=== PATIENT | female | born 1950 | race Caucasian/White ===

== ENCOUNTER 2018-09-20 18:41 | Emergency (ER) | payer MEDICAID ==
[2018-09-20] MEDS ORDERED: Morphine 2 MG/ML Syringe IVPUSH ONE (19:28)
[2018-09-20 19:29] LABS: CHLORIDE,CL 97 mmol/L (98-107); SODIUM,NA 131 mmol/L (136-145)
[2018-09-20] MEDS ORDERED: Ondansetron 4 MG/2 ML SDV IVPUSH ONE (19:29)
[2018-09-20] MEDS: Sodium Chloride 0.9% 10 ML Syringe FLUSH PRN ×2 (19:35→20:02)
--- NOTE | 2018-09-20 19:43 | EDM.PDOC ---
ED HPI GENERAL MEDICAL PROBLEM - General Chief Complaint: Chest Pain Stated Complaint: chest pain, dizziness Time Seen by Provider: 09/20/18 19:06 Source of Information: Reports: Patient History Limitations: Reports: Other (history of dementia, lives on basic care side of [facility]) - History of Present Illness INITIAL COMMENTS - FREE TEXT/NARRATIVE: Patient comes to ER complaining of two days of left sided chest pain/shoulder pain. Worse with inspiration and lifting left arm over head. Denies injury. Mild light headedness at times, no vertigo. Denies other changes, including headache/other pain, fevers/chills. No sore throat/cold symptoms. No cough/wheezing/SOB. Denies nausea/emesis/bowel changes. No dysuria/hematuria/UTI complaints. No new focal weakness in limbs, including left arm. Denies numbness/tingling of left arm. Pain does not travel down arm. Patient does have history of dementia listed on problem list from [facility]. No staff members present during evaluation. Appeared to be appropriately answering questions. Oriented appropriately - Related Data Allergies Allergy/AdvReac Type Severity Reaction Status Date / Time bee venom protein (honey bee) Allergy Hives Verified 09/20/18 19:16 lisinopril Allergy Cough Verified 09/20/18 19:14 Penicillins Allergy Cannot Verified 09/20/18 19:16 Remember "anesthesia" Allergy Shortness Uncoded 09/20/18 19:16 of Breath Home Meds: Home Meds Acetaminophen [Tylenol Extra Strength] 1,000 mg PO Q8H PRN 09/20/18 [History] Acetaminophen [Tylenol] 325 mg PO Q6H PRN #12 tablet 09/20/18 [Rx] Acetaminophen with Codeine [Tylenol with Codeine #3 Tablet] 1 each PO Q6H #12 tablet 09/20/18 [Rx] Albuterol/Ipratropium [DuoNeb 3.0-0.5 MG/3 ML] 3 ml .XX QID #1 box 09/20/18 [Rx] Aspirin [Halfprin] 81 mg PO DAILY 09/20/18 [History] Cholecalciferol (Vitamin D3) [Vitamin D3] 1,000 units PO DAILY 09/20/18 [History ] Divalproex Sodium [Depakote ER] 500 mg PO BID 09/20/18 [History] Doxycycline [Vibramycin] 100 mg PO BID #14 cap 09/20/18 [Rx] Loratadine [Claritin] 5 mg PO DAILY@18 09/20/18 [History] Multivitamin [Multi-Vitamin Daily] 1 each PO DAILY 09/20/18 [History] Phenylephrine HCl [Sudogest PE] 10 mg PO Q4H PRN 09/20/18 [History] QUEtiapine [SEROquel] 100 mg PO BID 09/20/18 [History] Sertraline [Zoloft] 125 mg PO DAILY 09/20/18 [History] Sodium Chloride 1 gm PO BID 09/20/18 [History] Spironolactone [Aldactone] 12.5 mg PO DAILY 09/20/18 [History] amLODIPine Besylate [Amlodipine Besylate] 5 mg PO DAILY 09/20/18 [History] atorvaSTATin Calcium [Lipitor] 20 mg PO DAILY@18 09/20/18 [History] Past Medical History HEENT History: Reports: Allergic Rhinitis Cardiovascular History: Reports: High Cholesterol, Hypertension Musculoskeletal History: Reports: Osteoarthritis, Other (See Below) (chronic pain) Neurological History: Reports: Seizure Psychiatric History: Reports: Alzheimers Disease, Anxiety, Dementia, Depression , PTSD, Other (See Below) (insomnia, history of self-harm) Hematologic History: Reports: Other (See Below) (chronically low Na/Cl, Vitamin D deficiency) Social & Family History - Family History Family Medical History: Noncontributory - Tobacco Use Smoking Status *Q: Never Smoker - Caffeine Use Caffeine Use: Reports: Coffee - Alcohol Use Alcohol Use History: No - Recreational Drug Use Recreational Drug Use: No Drug Use in Last 12 Months: No ED ROS GENERAL - Review of Systems Review Of Systems: ROS reveals no pertinent complaints other than HPI. ED EXAM, GENERAL - Physical Exam Exam: See Below Exam Limited By: No Limitations General Appearance: Alert, WD/WN, No Apparent Distress Eye Exam: Bilateral Eye: EOMI, PERRL Ears: Normal External Exam Nose: No: Nasal Deformity, Nasal Swelling, Nasal Drainage Throat/Mouth: Normal Lips, Normal Voice, No Airway Compromise Head: Atraumatic, Normocephalic Neck: Normal Inspection, Supple, Non-Tender, Full Range of Motion. No: Carotid Bruit, Lymphadenopathy (L), Lymphadenopathy (R) Respiratory/Chest: No Respiratory Distress, Lungs Clear, Normal Breath Sounds, No Accessory Muscle Use, Other (tender with palpation over lateral left ribcage , reproduces patient's pain complaint. ) Cardiovascular: Normal Peripheral Pulses, Regular Rate, Rhythm, No Edema, No Murmur Peripheral Pulses: 2+: Radial (L), Radial (R) GI/Abdominal: Normal Bowel Sounds, Soft, Non-Tender, No Distention, No Abnormal Bruit (Female) Exam: Deferred Rectal (Female) Exam: Deferred Back Exam: Normal Inspection. No: CVA Tenderness (L), CVA Tenderness (R), Muscle Spasm, Paraspinal Tenderness, Vertebral Tenderness Extremities: Normal Inspection, Non-Tender, Normal Capillary Refill Neurological: Alert, Oriented, Normal Gait, No Motor/Sensory Deficits Psychiatric: Normal Affect, Normal Mood Skin Exam: Warm, Dry, Intact, Normal Color EKG INTERPRETATION EKG Date: 09/20/18 Time: 18:44 Rhythm: Other (sinus tach) Rate (Beats/Min): 108 [place]: RAD-Right [place] Deviation P-Wave: Present QRS: Normal ST-T: Other (no changes suggestive of acute ischemia noted.) QT: Normal Comparison: NA - No Prior EKG Course - Orders/Labs/Meds Orders: Active Orders 24 hr Category Date Time Status EKG Documentation Completion [RC] ASDIRECTED Care 09/20/18 19:02 Active Oxygen Therapy, ED [RC] ASDIRECTED Care 09/20/18 19:12 Active Chest 2V [CR] Stat Exams 09/20/18 19:01 Taken Azithromycin [Zithromax] 500 mg Med 09/20/18 19:45 Active Sodium Chloride 0.9% [Normal Saline] 250 ml IV ONETIME Sodium Chloride 0.9% [Saline Flush] Med 09/20/18 19:12 Active 10 ml FLUSH ASDIRECTED PRN Saline Lock Insert [OM.PC] Routine Oth 09/20/18 19:12 Ordered EKG 12 Lead [EK] Routine Ther 09/20/18 18:50 Ordered Medication Orders Azithromycin 500 mg/ Sodium (Chloride) 250 mls @ 250 mls/hr IV ONETIME ONE Stop: 09/20/18 20:44 Last Admin: 09/20/18 20:04 Dose: 250 mls/hr Sodium Chloride (Saline Flush) 10 ml FLUSH ASDIRECTED PRN PRN Reason: Keep Vein Open Last Admin: 09/20/18 20:02 Dose: 10 ml Admin: 09/20/18 19:35 Dose: 10 ml Labs: Laboratory Tests 09/20/18 09/20/18 09/20/18 Range/Units 19:02 19:02 19:02 WBC 7.0 (4.0-10.2) K/uL RBC 4.32 (3.77-5.09) M/uL Hgb 13.0 (11.7-15.5) g/dL Hct 37.5 (34.0-46.0) % MCV 86.8 (84.0-98.0) fL MCH 30.1 (28.2-33.3) pg MCHC 34.7 (31.7-36.0) g/dL RDW 14.2 H (11.2-14.1) % Plt Count 180 (150-350) K/uL Neut % (Auto) 66.7 (45.0-80.0) % Lymph % (Auto) 17.8 (10.0-50.0) % [place] % (Auto) 13.4 (2.0-14.0) % Eos % (Auto) 2.0 (0.0-5.0) % Baso % (Auto) 0.1 (0.0-2.0) % Neut # (Auto) 4.63 (1.40-7.00) K/uL Lymph # (Auto) 1.24 (0.50-3.50) K/uL [place] # (Auto) 0.93 (0.00-1.00) K/uL Eos # (Auto) 0.14 (0.00-0.50) K/uL Baso # (Auto) 0.01 (0.00-0.20) K/uL PT 10.6 (9.5-12.0) SEC INR 1.0 APTT 29.2 (21.0-31.3) SEC D-Dimer, Quantitative (0-400) ng/mL Sodium 131 L (136-145) mmol/L Potassium 4.4 (3.5-5.1) mmol/L Chloride 97 L (98-107) mmol/L Carbon Dioxide 23.0 (21.0-32.0) mmol/L BUN 20 H (7-18) mg/dL Creatinine 0.81 (0.51-1.17) mg/dL Est Cr Clr Drug Dosing TNP Estimated GFR (MDRD) > 60 mL/min Glucose 130 H (74-106) mg/dL Lactic Acid (0.4-2.0) mmol/L Calcium 8.8 (8.5-10.1) mg/dL Magnesium 1.8 (1.8-2.4) mg/dL Total Bilirubin 0.3 (0.2-1.0) mg/dL AST 17 (15-37) U/L ALT 25 (12-78) U/L Alkaline Phosphatase 92 (46-116) IU/L Creatine Kinase 64 (26-308) U/L Creatine Kinase Index 1.6 (0.0-2.5) % CK-MB (CK-2) 1.00 (0.00-3.60) ng/mL Troponin I 0.004 (0.000-0.056) ng/mL NT-Pro-B Natriuret Pep 63 (0-125) pg/mL Total Protein 6.9 (6.4-8.2) g/dL Albumin 3.5 (3.4-5.0) g/dL TSH, Ultra Sensitive 1.998 (0.358-3.740) mIU/mL 09/20/18 09/20/18 Range/Units 19:03 19:05 WBC (4.0-10.2) K/uL RBC (3.77-5.09) M/uL Hgb (11.7-15.5) g/dL Hct (34.0-46.0) % MCV (84.0-98.0) fL MCH (28.2-33.3) pg MCHC (31.7-36.0) g/dL RDW (11.2-14.1) % Plt Count (150-350) K/uL Neut % (Auto) (45.0-80.0) % Lymph % (Auto) (10.0-50.0) % [place] % (Auto) (2.0-14.0) % Eos % (Auto) (0.0-5.0) % Baso % (Auto) (0.0-2.0) % Neut # (Auto) (1.40-7.00) K/uL Lymph # (Auto) (0.50-3.50) K/uL [place] # (Auto) (0.00-1.00) K/uL Eos # (Auto) (0.00-0.50) K/uL Baso # (Auto) (0.00-0.20) K/uL PT (9.5-12.0) SEC INR APTT (21.0-31.3) SEC D-Dimer, Quantitative < 100 (0-400) ng/mL Sodium (136-145) mmol/L Potassium (3.5-5.1) mmol/L Chloride (98-107) mmol/L Carbon Dioxide (21.0-32.0) mmol/L BUN (7-18) mg/dL Creatinine (0.51-1.17) mg/dL Est Cr Clr Drug Dosing Estimated GFR (MDRD) mL/min Glucose (74-106) mg/dL Lactic Acid 1.6 (0.4-2.0) mmol/L Calcium (8.5-10.1) mg/dL Magnesium (1.8-2.4) mg/dL Total Bilirubin (0.2-1.0) mg/dL AST (15-37) U/L ALT (12-78) U/L Alkaline Phosphatase (46-116) IU/L Creatine Kinase (26-308) U/L Creatine Kinase Index (0.0-2.5) % CK-MB (CK-2) (0.00-3.60) ng/mL Troponin I (0.000-0.056) ng/mL NT-Pro-B Natriuret Pep (0-125) pg/mL Total Protein (6.4-8.2) g/dL Albumin (3.4-5.0) g/dL TSH, Ultra Sensitive (0.358-3.740) mIU/mL Meds: Medications Generic Name Dose Route Start Last Admin Trade Name Freq PRN Reason Stop Dose Admin Azithromycin 500 mg/ Sodium 250 mls @ 250 mls/hr 09/20/18 19:45 09/20/18 20: 04 Chloride IV 09/20/18 20:44 250 mls/hr ONETIME ONE Administration Sodium Chloride 10 ml 09/20/18 19:12 09/20/18 20:02 Saline Flush FLUSH 10 ml ASDIRECTED PRN Administration Keep Vein Open Discontinued Medications Generic Name Dose Route Start Last Admin Trade Name Brody PRN Reason Stop Dose Admin Ketorolac Tromethamine 30 mg 09/20/18 19:53 09/20/18 20:02 Toradol IVPUSH 09/20/18 19:54 30 mg ONETIME ONE Administration Morphine Sulfate 2 mg 09/20/18 19:28 09/20/18 19:36 Morphine IVPUSH 09/20/18 19:29 2 mg ONETIME ONE Administration Ondansetron HCl 4 mg 09/20/18 19:29 09/20/18 19:33 Zofran IVPUSH 09/20/18 19:30 4 mg ONETIME ONE Administration - Radiology Interpretation Free Text/Narrative:: chest xray showed left lower lobe infiltrate - Re-Assessments/Exams Free Text/Narrative Re-Assessment/Exam: 09/20/18 20:33 Normal WBC. Mild decrease Na/Cl. Patient does take sodium replacement routinely per SEP. Normal Troponin/DDimer. No acute ST changes on EKG. Infiltrate noted left lower lung on chest xray. Small dose IV MS given along with Zofran, followed by single dose Zithromax. Small bolus of NS (500ml) also given. DuoNeb. O2 sats on room air 89-91%. Improved to mid/upper 90s on 2L O2 via NC. Will discharge home on Doxy 100mg BID. Changed from Zithromax as it had less potential for medication interaction with patient's current routine meds. Small amount T#3 given for pleuritic pain. She has not tried Tylenol for the pain and was encouraged to use Tylenol regularly for the next few days to help improve her level of comfort. Close follow up with primary clinic recommended. To make f/u appointment for next Wednesday. PRN order for O2 via NC to keep O2 sats over 91% DuoNebs also ordered. Departure - Departure Time of Disposition: 22:00 Disposition: DC/Tfer to SNF 03 Condition: Good Clinical Impression: Pleurisy Left lower lobe pneumonia Qualifiers: Pneumonia type: due to unspecified organism Qualified Code(s): J18.1 - Lobar pneumonia, unspecified organism - Discharge Information *PRESCRIPTION DRUG MONITORING PROGRAM REVIEWED*: Not Applicable *COPY OF PRESCRIPTION DRUG MONITORING REPORT IN PATIENT GAEL: Not Applicable Prescriptions: Acetaminophen [Tylenol] 325 mg PO Q6H PRN #12 tablet PRN Reason: Pain Acetaminophen with Codeine [Tylenol with Codeine #3 Tablet] 1 each PO Q6H #12 tablet Doxycycline [Vibramycin] 100 mg PO BID #14 cap Instructions: Pleurisy, [id number], Community-Acquired Pneumonia, Adult, Easy -to-Read Referrals: Sheets-Jaycee Montes MD [Primary Care Provider] - Forms: ED Department Discharge Additional Instructions: OK to take Tylenol 325mg, two tablets every 6 hours to help with pain. For more severe pain, take single Tylenol tablet with single T#3 tablet every 6 hours. Cautious use of ibuprofen given age as it can be hard on kidneys. May use 400mg ibuprofen every 6-8 hours to also help with pain. Make follow up appointment at [facility] for next Wednesday to get rechecked and have new chest xray. Follow up earlier if problems develop. Follow up at this week if fdc rounds are performed. PRN O2 via NC at 1-4L as needed to keep O2 sats over 91% DuoNebs QID for one week. Doxy 100mg [id number] for 7 days - My Orders Last 24 Hours: My Active Orders 09/20/18 18:50 EKG 12 Lead [EK] Routine 09/20/18 19:01 Chest 2V [CR] Stat 09/20/18 19:02 EKG Documentation Completion [RC] ASDIRECTED 09/20/18 19:12 Oxygen Therapy, ED [RC] ASDIRECTED Sodium Chloride 0.9% [Saline Flush] 10 ml FLUSH ASDIRECTED PRN Saline Lock Insert [OM.PC] Routine 09/20/18 19:45 Azithromycin [Zithromax] 500 mg Sodium Chloride 0.9% [Normal Saline] 250 ml IV ONETIME - Assessment/Plan Last 24 Hours: My Active Orders 09/20/18 18:50 EKG 12 Lead [EK] Routine 09/20/18 19:01 Chest 2V [CR] Stat 09/20/18 19:02 EKG Documentation Completion [RC] ASDIRECTED 09/20/18 19:12 Oxygen Therapy, ED [RC] ASDIRECTED Sodium Chloride 0.9% [Saline Flush] 10 ml FLUSH ASDIRECTED PRN Saline Lock Insert [OM.PC] Routine 09/20/18 19:45 Azithromycin [Zithromax] 500 mg Sodium Chloride 0.9% [Normal Saline] 250 ml IV ONETIME
[2018-09-20] MEDS ORDERED: Azithromycin 500 MG in Sodium Chloride 0.9% 250 ML IV ONE (19:45)
[2018-09-20] MEDS ORDERED: Ketorolac 30 MG/ML SDV IVPUSH ONE (19:53)
[2018-09-20] MEDS ORDERED: Sodium Chloride 0.9% 500 ML IV ONE (20:37)
[2018-09-20] MEDS ORDERED: Albuterol/Ipratropium 3.0-0.5 MG/3 ML Neb Soln NEB ONE (20:50)
== END 2018-09-20 22:15 ==
LOC: LL.ED 18:41
DX: J18.1 Lobar pneumonia, unspecified organism (principal); R09.1 Pleurisy; E78.00 Pure hypercholesterolemia, unspecified; I10 Essential (primary) hypertension; F41.9 Anxiety disorder, unspecified; F32.9 Major depressive disorder, single episode, unspecified; Z91.030 Bee allergy status; Z79.899 Other long term (current) drug therapy; Z88.4 Allergy status to anesthetic agent; Z88.0 Allergy status to penicillin
CPT/HCPCS: 36415; 71046; 80053; 82550; 82553; 83605; 83735; 83880; 84443; 84484; 85025; 85379; 85610; 85730; 93005; 94640; 96361; 96365; 96375; 99285-25; J0456; J1885; J2270; J2405; J7040; J7050; J7620-GY

== ENCOUNTER 2019-09-12 11:02 | Emergency (ER) | payer MEDICAID, OTHER ==
[2019-09-12] MEDS ORDERED: Sodium Chloride 0.9% 1,000 ML IV ONE (11:27)
[2019-09-12 11:34] LABS: CHLORIDE,CL 87 mmol/L (98-107)
[2019-09-12 11:35] LABS: SODIUM,NA 120 mmol/L (136-145)
--- NOTE | 2019-09-12 12:28 | EDM.PDOC ---
ED HPI GENERAL MEDICAL PROBLEM - General Chief Complaint: General Stated Complaint: Confusion, N/V Time Seen by Provider: 09/12/19 11:29 Source of Information: Reports: Patient, Assisted Records History Limitations: Reports: Altered Mental Status - History of Present Illness INITIAL COMMENTS - FREE TEXT/NARRATIVE: Pt with increased confusion today has had N/V/D for 5 days Increased diarrhea today with incontinent episodes Pt also markedly confused today which is new onset No focal neuro changes except confusion Onset: Gradual Duration: Day(s): Location: Reports: Generalized Associated Symptoms: Reports: Confusion, Nausea/Vomiting, Other (Diarrhea) - Related Data Allergies Allergy/AdvReac Type Severity Reaction Status Date / Time bee venom protein (honey bee) Allergy Hives Verified 09/12/19 11:41 lisinopril Allergy Cough Verified 09/12/19 11:41 Penicillins Allergy Cannot Verified 09/12/19 11:41 Remember "anesthesia" Allergy Shortness Uncoded 09/12/19 11:41 of Breath Home Meds: Home Meds Acetaminophen [Tylenol Extra Strength] 1,000 mg PO TID PRN 09/20/18 [History] Aspirin [Halfprin] 81 mg PO DAILY 09/20/18 [History] Cholecalciferol (Vitamin D3) [Vitamin D3] 1,000 units PO DAILY 09/20/18 [History ] Divalproex Sodium [Depakote ER] 500 mg PO BID 09/20/18 [History] Loratadine [Claritin] 5 mg PO DAILY@18 09/20/18 [History] Multivitamin [Multi-Vitamin Daily] 1 each PO DAILY 09/20/18 [History] Sertraline [Zoloft] 125 mg PO DAILY 09/20/18 [History] Sodium Chloride 1 gm PO BID 09/20/18 [History] Spironolactone [Aldactone] 12.5 mg PO DAILY 09/20/18 [History] atorvaSTATin Calcium [Lipitor] 20 mg PO DAILY@18 09/20/18 [History] Albuterol/Ipratropium [DuoNeb 3.0-0.5 MG/3 ML] 1 vial INH TID 09/12/19 [History] Albuterol/Ipratropium [DuoNeb 3.0-0.5 MG/3 ML] 3 ml INH QID PRN 09/12/19 [ History] Benzonatate 200 mg PO TID 09/12/19 [History] Eucalyptus/Menthol [Cough Drops] 1 ea PO Q2H PRN 09/12/19 [History] Omeprazole 20 mg PO DAILY 09/12/19 [History] Phenylephrine HCl [Sudogest PE] 10 mg PO Q4H PRN 09/12/19 [History] Polyvinyl Alcohol [LiquiTears 1.4% Ophth Soln] 1 drop EYEBOTH QID PRN 09/12/19 [ History] QUEtiapine [SEROquel] 25 mg PO DAILY 09/12/19 [History] QUEtiapine [SEROquel] 50 mg PO DAILY@18 09/12/19 [History] amLODIPine [Norvasc] 2.5 mg PO DAILY 09/12/19 [History] guaiFENesin/Dextromethorphan [Tussin Dm Liquid] 5 ml PO Q4H 09/12/19 [History] guaiFENesin/Dextromethorphan [Tussin Dm Liquid] 5 ml PO TID 09/12/19 [History] Past Medical History HEENT History: Reports: Allergic Rhinitis Cardiovascular History: Reports: High Cholesterol, Hypertension [employer] History: Reports: Musculoskeletal History: Reports: Osteoarthritis, Other (See Below) (chronic pain) Neurological History: Reports: Seizure Psychiatric History: Reports: Alzheimers Disease, Anxiety, Dementia, Depression , PTSD, Other (See Below) (insomnia, history of self-harm) Other Psychiatric History: history of self harm Hematologic History: Reports: Other (See Below) (chronically low Na/Cl, Vitamin D deficiency) Social & Family History - Family History Family Medical History: Noncontributory - Tobacco Use Smoking Status *Q: Unknown Ever Smoked - Caffeine Use Caffeine Use: Reports: Coffee ED ROS GENERAL - Review of Systems Review Of Systems: See Below Respiratory: Reports: No Symptoms Cardiovascular: Reports: No Symptoms GI/Abdominal: Reports: Diarrhea, Nausea, Vomiting : Reports: No Symptoms Musculoskeletal: Reports: No Symptoms Neurological: Reports: Confusion ED EXAM, GENERAL - Physical Exam Exam: See Below Exam Limited By: Altered Mental Status Throat/Mouth: Normal Oropharynx Neck: Supple Respiratory/Chest: Lungs Clear Cardiovascular: Regular Rate, Rhythm GI/Abdominal: Soft, Tender Extremities: No Pedal Edema Neurological: Confused, Disoriented Course - Vital Signs Last Recorded V/S: Last Vital Signs Temp 96.8 F L 09/12/19 11:05 Pulse 77 09/12/19 11:05 Resp 16 09/12/19 11:05 BP 132/68 09/12/19 11:05 Pulse Ox 98 09/12/19 11:05 - Orders/Labs/Meds Orders: Active Orders 24 hr Category Date Time Status Peripheral IV Care [RC] . DIRECTED Care 09/12/19 11:04 Active Chest 1V Frontal [CR] Stat Exams 09/12/19 11:03 Taken Head wo Cont [CT] Stat Exams 09/12/19 11:29 Taken Sodium Chloride 0.9% [Normal Saline] 1,000 ml Med 09/12/19 11:27 Active IV .BOLUS Medication Orders Sodium Chloride (Normal Saline) 1,000 mls @ 999 mls/hr IV .BOLUS ONE Stop: 09/12/19 12:27 Last Admin: 09/12/19 11:44 Dose: 999 mls/hr Labs: Laboratory Tests 09/12/19 09/12/19 09/12/19 Range/Units 11:05 11:05 11:05 WBC 7.1 (4.0-10.2) K/uL RBC 4.21 (3.77-5.09) M/uL Hgb 12.4 (11.7-15.5) g/dL Hct 35.4 (34.0-46.0) % MCV 84.1 D (84.0-98.0) fL MCH 29.5 (28.2-33.3) pg MCHC 35.0 (31.7-36.0) g/dL RDW 13.9 (11.2-14.1) % Plt Count 202 (150-350) K/uL Neut % (Auto) 66.6 (45.0-80.0) % Lymph % (Auto) 19.9 (10.0-50.0) % [place] % (Auto) 11.9 (2.0-14.0) % Eos % (Auto) 1.5 (0.0-5.0) % Baso % (Auto) 0.1 (0.0-2.0) % Neut # (Auto) 4.75 (1.40-7.00) K/uL Lymph # (Auto) 1.42 (0.50-3.50) K/uL [place] # (Auto) 0.85 (0.00-1.00) K/uL Eos # (Auto) 0.11 (0.00-0.50) K/uL Baso # (Auto) 0.01 (0.00-0.20) K/uL Sodium 120 L* D (136-145) mmol/L Potassium 3.8 (3.5-5.1) mmol/L Chloride 87 L D (98-107) mmol/L Carbon Dioxide 26.3 (21.0-32.0) mmol/L BUN 18 (7-18) mg/dL Creatinine 0.66 (0.51-1.17) mg/dL Est Cr Clr Drug Dosing TNP Estimated GFR (MDRD) > 60 mL/min Glucose 98 (74-106) mg/dL Lactic Acid 0.8 (0.4-2.0) mmol/L Calcium 8.4 L (8.5-10.1) mg/dL Total Bilirubin 0.5 (0.2-1.0) mg/dL AST 23 (15-37) U/L ALT 25 (12-78) U/L Alkaline Phosphatase 85 (46-116) IU/L Total Protein 6.3 L (6.4-8.2) g/dL Albumin 3.6 (3.4-5.0) g/dL Meds: Medications Generic Name Dose Route Start Last Admin Trade Name Freq PRN Reason Stop Dose Admin Sodium Chloride 1,000 mls @ 999 mls/hr 09/12/19 11:27 09/12/19 11:44 Normal Saline IV 09/12/19 12:27 999 mls/hr .BOLUS ONE Administration - Re-Assessments/Exams Free Text/Narrative Re-Assessment/Exam: 09/12/19 12:27 See lab and xray reports Pt with hyponatremia with Na 120 D/W Dr Rpuerto Mosley Will accept in transfer Pt with NS IVF's Transfer via ambulance Departure - Departure Time of Disposition: 12:30 Disposition: DC/Tfer to Acute Hospital 02 Clinical Impression: Acute hyponatremia, Confused - Discharge Information Referrals: Sheets-Jaycee Montes MD [Primary Care Provider] - Sepsis Event Note - Evaluation Sepsis Screening Result: No Definite Risk - Focused Exam Vital Signs: Vital Signs Temp Pulse Resp BP Pulse Ox 09/12/19 11:05 96.8 F L 77 16 132/68 98 Date Exam was Performed: 09/12/19 Time Exam was Performed: 12:23 - My Orders Last 24 Hours: My Active Orders 09/12/19 11:03 Chest 1V Frontal [CR] Stat 09/12/19 11:04 Peripheral IV Care [RC] . DIRECTED 09/12/19 11:27 Sodium Chloride 0.9% [Normal Saline] 1,000 ml IV .BOLUS 09/12/19 11:29 Head wo Cont [CT] Stat - Assessment/Plan Last 24 Hours: My Active Orders 09/12/19 11:03 Chest 1V Frontal [CR] Stat 09/12/19 11:04 Peripheral IV Care [RC] . DIRECTED 09/12/19 11:27 Sodium Chloride 0.9% [Normal Saline] 1,000 ml IV .BOLUS 09/12/19 11:29 Head wo Cont [CT] Stat
[2019-09-12] MEDS ORDERED: Sodium Chloride 3% 500 ML IV SCH (13:15)
== END 2019-09-12 13:26 ==
LOC: LL.ED 11:02
DX: E87.1 Hypo-osmolality and hyponatremia (principal); I10 Essential (primary) hypertension; G30.9 Alzheimer's disease, unspecified; F02.80 Dementia in other diseases classified elsewhere, unspecified severity, without behavioral disturbance, psychotic disturbance, mood disturbance, and anxiety; Z79.899 Other long term (current) drug therapy
CPT/HCPCS: 36415; 51702; 70450; 71045; 80053; 82570; 83605; 83935; 84133; 84300; 85025; 87804; 96360; 99285; J7030; J7040